=== PATIENT | male | born 1990 | race African-American/Black ===

== ENCOUNTER 2017-08-09 16:23 | Emergency (ER) | payer SELFPAY ==
[~2017-08-09] VITALS: Ht 193 cm; Wt 97.5 kg
--- NOTE | 2017-08-09 17:27 | ED General ---
General Chief Complaint: General Problems/Pain Stated Complaint: SICK, FEELS PAIN IN SPINE, Nursing Triage Note: PT REPORTS NAUSEA AND PRESSURE TO HIS POSTERIOR HEAD AND NECK. HE REPORTS FEELING FEVERISH EARLIER TODAY. Nursing Sepsis Screen: No Definite Risk Source of Information: Patient Exam Limitations: No Limitations History of Present Illness Time Seen by Provider: 17:27 Initial Comments 26-year-old male patient presents to the emergency department with complaints of nausea, muscle tension of the neck, posterior headache, and worsening psoriasis. Reports feeling like he has a low-grade fever and chills today. Does complain of a sore throat and nasal congestion intermittently. Location Injury Occurred: denies known injury Timing/Duration: Changing Over Time, Other (2 wk onset) Modifying Factors: worse with Other (denies taking OTC meds or using home remedies.) Allergies and Home Medications Home Medications Cyclobenzaprine HCl 10 Mg Tablet, 10 MG PO Q8H PRN for SPASMS, #10 Ref 0 Prescribed by: ASHLI LIMA on 08/09/171920 Prednisone 20 Mg Tab, 40 MG PO DAILY, #8 Ref 0 Prescribed by: ASHLI LIMA on 08/09/171920 Constitutional: chills, No diaphoresis, No dizziness, fever, malaise EENTM: see HPI, nose congestion, throat pain, No ear discharge, No ear pain, No eye pain, No vision loss, No mouth pain, No nose pain, No throat swelling Respiratory: No cough, No phlegm, No short of breath Cardiovascular: No chest pain, No palpitations Gastrointestinal: No abdominal pain, No constipation, diarrhea, loss of appetite, nausea, No vomiting Genitourinary: No decreased output, No dysuria, No frequency, No hematuria, No pain Musculoskeletal: no symptoms reported Skin: see HPI, rash Psychiatric/Neurological: Headache, Denies Numbness, Denies Paresthesia, Denies Seizure, Denies Tingling, Denies Weakness All Other Systems Reviewed Negative Unless Noted: Yes (Negative excepted noted.) Past Odsrmmb-Idmvnv-Btshif Hx Patient Social History Alcohol Use: Occasionally Uses Recreational Drug Use: No Smoking Status: Current Someday Smoker Type Used: Cigarettes 2nd Hand Smoke Exposure: Yes Recent Foreign Travel: No Contact w/Someone Who Travel: No Recent Infectious Disease Expo: No Recent Hopitalizations: No Physical Abuse: No Sexual Abuse: No Seasonal Allergies Seasonal Allergies: No Surgeries History of Surgeries: No Respiratory History of Respiratory Disorde: No Cardiovascular History of Cardiac Disorders: No Neurological History of Neurological Disord: No Genitourinary History of Genitourinary Disor: No Gastrointestinal History of Gastrointestinal Di: No Musculoskeletal History of Musculoskeletal Dis: No Endocrine History of Endocrine Disorders: No Psychosocial Suicide Risk Score: 0 Integumentary History of Skin or Integumenta: Yes Skin/Integumentary Disorders: Psoriasis Reviewed Nursing Assessment Reviewed/Agree w Nursing PMH: Yes Family Medical History Significant Family History: No Pertinent Family Hx Physical Exam Vital Signs Vital Sign - Last 12Hours 08/09/17 16:52 Temp 98.2 Pulse 76 Resp 16 B/P (MAP) 138/74 Pulse Ox 99 O2 Delivery Room Air Capillary Refill : Less Than 3 Seconds General Appearance: No Apparent Distress, WD/WN HEENT: PERRL/EOMI, TMs Normal, Normal ENT Inspection, Pharyngeal Erythema, No Tonsillar Exudate, No Tonsillar Enlargement Neck: Full Range of Motion, Normal Inspection, Non Tender, Supple, No Other ( negative nuchal rigidity.) Respiratory: Lungs Clear, Normal Breath Sounds, No Accessory Muscle Use, No Respiratory Distress Cardiovascular: Regular Rate, Rhythm, No Edema, No Murmur, Normal Peripheral Pulses Gastrointestinal: Normal Bowel Sounds, No Organomegaly, Non Tender, Soft, No Distended Back: Normal Inspection, No Vertebral Tenderness Extremity: Normal Capillary Refill, Non Tender, No Pedal Edema, Other (scar noted to the left lateral ankle (patient states he had an infection on the ankle a couple of weeks ago, but resolved).) Neurologic/Psychiatric: Alert, Oriented x3, No Motor/Sensory Deficits, Normal Mood/Affect, 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 Skin: Normal Color, Warm/Dry, Rash (large silvery plaques of the bilateral upper extremities, posterio-lateral neck, and bilateral lower extremities consistent with history of psoriasis.), Other (see extremity exam above.) Progress/Results/Core Measures Results/Orders Lab Results Laboratory Tests Test 08/09/17 18:16 Range/Units White Blood Count 8.4 4.3-11.0 10^3/uL Red Blood Count 5.14 4.35-5.85 10^6/uL Hemoglobin 14.8 13.3-17.7 G/DL Hematocrit 43 40-54 % Mean Corpuscular Volume 84 80-99 FL Mean Corpuscular Hemoglobin 29 25-34 PG Mean Corpuscular Hemoglobin Concent 34 32-36 G/DL Red Cell Distribution Width 13.2 10.0-14.5 % Platelet Count 389 130-400 10^3/uL Mean Platelet Volume 9.4 7.4-10.4 FL Neutrophils (%) (Auto) 75 42-75 % Lymphocytes (%) (Auto) 18 12-44 % Monocytes (%) (Auto) 5 0-12 % Eosinophils (%) (Auto) 2 0-10 % Basophils (%) (Auto) 0 0-10 % Neutrophils # (Auto) 6.3 1.8-7.8 X 10^3 Lymphocytes # (Auto) 1.5 1.0-4.0 X 10^3 Monocytes # (Auto) 0.4 0.0-1.0 X 10^3 Eosinophils # (Auto) 0.2 0.0-0.3 10^3/uL Basophils # (Auto) 0.0 0.0-0.1 10^3/uL Erythrocyte Sedimentation Rate 4 0-15 MM/HR Sodium Level 139 135-145 MMOL/L Potassium Level 3.9 3.6-5.0 MMOL/L Chloride Level 106 98-107 MMOL/L Carbon Dioxide Level 22 21-32 MMOL/L Anion Gap 11 5-14 MMOL/L Blood Urea Nitrogen 13 7-18 MG/DL Creatinine 1.02 0.60-1.30 MG/DL Estimat Glomerular Filtration Rate > 60 BUN/Creatinine Ratio 13 Glucose Level 103 70-105 MG/DL Calcium Level 9.4 8.5-10.1 MG/DL Total Bilirubin 0.3 0.1-1.0 MG/DL Aspartate Amino Transf (AST/SGOT) 15 5-34 U/L Alanine Aminotransferase (ALT/SGPT) 30 0-55 U/L Alkaline Phosphatase 61 40-136 U/L C-Reactive Protein High Sensitivity 0.26 0.00-0.50 MG/DL Total Protein 7.3 6.4-8.2 GM/DL Albumin 4.0 3.2-4.5 GM/DL TSH [place] Testing 1.40 0.35-4.94 UIU/ML My Namr[facility] Ott - ASHLI LIMA Cbc With Automated Diff (9/10/17 17:41) Comprehensive Metabolic Panel (08/09/17 17:41) Hs C Reactive Protein (08/09/17 17:41) Thyroid Analyzer (08/09/17 17:41) Erythrocyte Sedimentation Rate (08/09/17 17:41) Vital Signs/I&O Vital Sign - Last 12Hours 08/09/17 16:52 Temp 98.2 Pulse 76 Resp 16 B/P (MAP) 138/74 Pulse Ox 99 O2 Delivery Room Air Blood Pressure Mean: 95 Departure Communication (Admissions) Progress Notes Patient seen and evaluated. Labs obtained. Patient refuses pain medication and states the headache "isn't that bad". 1914 laboratory findings discussed with the patient. Plan for discharge to home with follow-up as an outpatient with Dr. Minaya and the primary care physician of his choice. Patient to call for appointment times. Return precautions were discussed with the patient as described in the discharge instructions of this report. Patient voices understanding and agrees with the treatment plan. Impression Impression: Primary Impression: Tension headache Additional Impressions: Psoriasis Diarrhea Qualified Codes: R19.7 - Diarrhea, unspecified Pharyngitis, acute Qualified Codes: J02.9 - Acute pharyngitis, unspecified Disposition: 01 HOME, SELF-CARE Condition: Improved Departure-Patient Inst. Decision time for Depature: 19:17 Referrals: NO,LOCAL PHYSICIAN (PCP) Primary Care Physician TRUMAN MINAYA MD Patient Instructions: Diarrhea in Adolescents and Adults, Tension Headache (DC) Add. Discharge Instructions: All discharge instructions reviewed with patient and/or family. Voiced understanding. Tylenol extra strength [id number] as directed for pain or headache. Ibuprofen 800 mg by mouth every 8 hours as needed for pain or headache. Consider seeing a chiropractor and/or massage therapist. Follow-up with the family practitioner of your choice for recheck and to establish care. Follow-up with Dr. Minaya (exhibit artist) as an outpatient for further evaluation and management of your psoriasis. Return in the emergency department for worsened symptoms or any other concerns. Scripts Cyclobenzaprine HCl (Cyclobenzaprine HCl) 10 Mg Tablet 10 MG PO Q8H Y for SPASMS, #10 TAB 0 Refills Prov: ASHLI LIMA 08/09/17 Prednisone (Prednisone) 20 Mg Tab 40 MG PO DAILY, #8 TAB 0 Refills Prov: ASHLI LIMA 08/09/17 Work/School Note: Local Medical Staff Listing, Work Release Form Date Seen in the Emergency Department: Aug 09, 2017 Return to Work: Aug 11, 2017 Restrictions: No Restrictions ASHLI LIMA Aug 09, 2017 17:27
[2017-08-09 18:23] LABS: BASOPHILS % (AUTO) 0 % (0-10); EOSINOPHILS # (AUTO) 0.2 10^3/uL (0.0-0.3); EOSINOPHILS % (AUTO) 2 % (0-10); LYMPHOCYTES # (AUTO) 1.5 X 10^3 (1.0-4.0); LYMPHOCYTES % (AUTO) 18 % (12-44); MEAN CORPUSCULAR HEMOGLOBIN 29 PG (25-34); MEAN CORPUSCULAR HGB CONC 34 G/DL (32-36); MEAN CORPUSCULAR VOLUME 84 FL (80-99); MEAN PLATELET VOLUME 9.4 FL (7.4-10.4); MONOCYTES # (AUTO) 0.4 X 10^3 (0.0-1.0); MONOCYTES % (AUTO) 5 % (0-12); NEUTROPHILS # (AUTO) 6.3 X 10^3 (1.8-7.8); NEUTROPHILS % (AUTO) 75 % (42-75); PLATELET COUNT 389 10^3/uL (130-400); RED BLOOD COUNT 5.14 10^6/uL (4.35-5.85); RED CELL DISTRIBUTION WIDTH 13.2 % (10.0-14.5); WHITE BLOOD COUNT 8.4 10^3/uL (4.3-11.0)
[2017-08-09 18:41] LABS: ALANINE AMINOTRANSFERASE 30 U/L (0-55); ANION GAP 11 MMOL/L (5-14); ASPARTATE AMINO TRANSFERASE 15 U/L (5-34); BILIRUBIN,TOTAL 0.3 MG/DL (0.1-1.0); BLOOD UREA NITROGEN 13 MG/DL (7-18); BUN/CREATININE RATIO 13; CALCIUM 9.4 MG/DL (8.5-10.1); CARBON DIOXIDE 22 MMOL/L (21-32); CHLORIDE 106 MMOL/L (98-107); CREATININE SERUM 1.02 MG/DL (0.60-1.30); GFR ESTIMATED > 60; GLUCOSE 103 MG/DL (70-105); POTASSIUM 3.9 MMOL/L (3.6-5.0); SODIUM 139 MMOL/L (135-145); TOTAL PROTEIN 7.3 GM/DL (6.4-8.2); hs C REACTIVE PROTEIN 0.26 MG/DL (0.00-0.50)
[2017-08-09 18:50] LABS: ERYTHROCYTE SEDIMENTATION RATE 4 MM/HR (0-15)
[2017-08-09] MEDS ORDERED: PRD20T PO (19:21)
[2017-08-09] MEDS ORDERED: CYCL10TA9 PO (19:21)
[2017-08-09 19:55] VITALS: BP 138/74
== END 2017-08-09 19:55 | disposition home or self-care (01) ==
LOC: ER 16:27
DX: J20.9 Acute bronchitis, unspecified (principal); G44.209 Tension-type headache, unspecified, not intractable; L40.9 Psoriasis, unspecified; R19.7 Diarrhea, unspecified; F17.210 Nicotine dependence, cigarettes, uncomplicated
CPT/HCPCS: 36415; 80053; 84443; 85025; 85652; 86141; 99281